=== PATIENT | male | born 1980 | race Caucasian/White ===

== ENCOUNTER → 2017-03-17 | Outpatient (CLI) | payer BC ==
[~2017-03-17] MED LIST: DURICEF PO; LORTAB 5/500 501 TAB PO; NO HOME MEDICATIONS
[2017-03-17 16:17] LABS: BASO % 0.3 % (0.0-2.0); EOS # 0.2 (0.0-0.7); EOS % 2.6 % (0-4.0); GRAN # 4.3 (1.4-6.5); GRAN % 64.7 % (42.2-75.2); HEMATOCRIT 39.2 % (42.0-52.0); HEMOGLOBIN 13.5 g/dl (13.5-18.0); LYMPH # 1.7 (1.2-3.4); LYMPH % 25.1 % (20.0-51.0); MEAN CELL VOLUME 87 fl (80.0-100.0); MEAN CORPUSCULAR HEMOGLOBIN 30 pg (27.0-31.0); MEAN CORPUSCULAR HGB CONC 34 g/dl (33.0-37.0); MEAN PLATELET VOLUME 8.5 fl (7.4-10.4); MONO # 0.5 (0.1-0.6); MONO % 6.8 % (1.7-9.3); PLATELET COUNT 197 K/mm3 (130-400); RED BLOOD COUNT 4.53 M/mm3 (4.20-5.60); REDCELL DISTRIBUTION WIDTH-CV 12.1 % (11.5-14.5)
[2017-03-17 16:24] LABS: CALCIUM 9.5 mg/dL (8.4-10.2); CHOLESTEROL RISK RATIO 1.7; CREATININE, serum 0.81 mg/dL (0.66-1.25)
== END ==
LOC: COL.LAB 14:52
PROVIDERS: Family Medicine
DX: Z00.00 Encounter for general adult medical examination without abnormal findings (principal); Z13.1 Encounter for screening for diabetes mellitus; Z13.220 Encounter for screening for lipoid disorders; Z83.3 Family history of diabetes mellitus

== ENCOUNTER → 2019-04-26 | Outpatient (CLI) | payer BC | LOC: COL.VAS 08:21 | DX: I07.1 Rheumatic tricuspid insufficiency (principal) ==